=== PATIENT | male | born 1960 | race Caucasian/White ===

== ENCOUNTER 2017-08-08 19:25 | Emergency (ER) | payer OTHER ==
[~2017-08-08] VITALS: Ht 180.3 cm; Wt 8.6 kg
[2017-08-08 19:58] VITALS: BP 97/54; PULSE 119; RESP 20; TEMP 99.7; O2SAT 98
[2017-08-08] MEDS ORDERED: CARB25TA9 PO (20:07)
[2017-08-08] MEDS ORDERED: CHOLESTEROL MED (20:07)
[2017-08-08] MEDS ORDERED: CARB25TA16 PO (20:07)
--- NOTE | 2017-08-08 20:37 | PD ---
HPI Chief Complaint: Back/ Neck Pain or Injury Time Seen by Provider: 20:27 Travel History International Travel<30 days: No Contact w/Intl Traveler<30days: No Traveled to known affect area: No History of Present Illness HPI Patient comes to the emergency department complaining of right low back pain radiating down his right lower extremity describes a burning-like in nature. Patient reports symptoms began 3 days ago. Patient denies any fevers, loss or change in bowel or bladder, numbness or tingling anywhere, weakness, trauma, or history of IV drug use. Patient reports taking baclofen for this with little no relief of symptoms. Patient reports pain got worse shortly prior to arrival. Pain is worse with certain movement and walking. PFSH Past Medical History High Cholesterol: Yes Parkinson's Disease: Yes Past Surgical History Appendectomy: Yes Social History Alcohol Use: No Tobacco Use: Yes (1PPD) Substance Use: No Allergies-Medications (Allergen,Severity, Reaction): Coded Allergies: No Known Allergies (Unverified , 08/08/17) Reported Meds & Prescriptions Reported Meds & Active Scripts Active Corona (Hydrocodone-Acetaminophen) 5 Mg-325 Mg Tab 1 Tab PO Q8HR PRN Medrol Dosepak (Methylprednisolone) 4 Mg Dspk 4 Mg PO DIRECTED Per Pharmacist direction Reported [Cholesterol Med] Carbidopa-Levodopa 25-100 Mg Tab Unknown Dose PO Q8HR Carbidopa-Levodopa ER 25-100 Mg Tab Unknown Dose PO DAILY Review of Systems Except as stated in HPI: all other systems reviewed are Neg Physical Exam Narrative GENERAL: Well-developed, well nourished, appears uncomfortable, and non-ill appearing. SKIN: Focused skin assessment warm and dry. HEAD: Atraumatic. Normocephalic. EYES: Pupils equal and round. EOMI. No scleral icterus. No injection or drainage. ENT: No nasal bleeding or discharge. Mucous membranes pink and moist. NECK: Trachea midline. Supple. No nuclear rigidity. RESPIRATORY: No accessory muscle use. No respiratory distress. MUSCULOSKELETAL: No obvious deformities. No clubbing. No cyanosis. No edema. Full range of motion. No tenderness or crepitus of the midline of the lumbar spine. Patient reports tenderness palpation near right SI joint. Straight leg test negative bilaterally. NEUROLOGICAL: Awake and alert. No obvious cranial nerve deficits. Motor grossly within normal limits. Normal speech. PSYCHIATRIC: Appropriate mood and affect; insight and judgment normal. Data Data Last Documented VS Vital Signs Date Time Temp Pulse Resp B/P (MAP) Pulse Ox O2 Delivery O2 Flow Rate FiO2 08/08/17 19:58 99.7 119 20 97/54 (68) 98 Orders Orders Dexamethasone Inj (Decadron Inj) (08/08/17 20:45) Orphenadrine Inj (Norflex Inj) (08/08/17 20:45) Acetamin-Hydrocod 325-5 Mg (Corona 5-325 (08/08/17 20:45) Ed Discharge Order (08/08/17 20:40) [facility] Medical Decision Making Medical Screen Exam Complete: Yes Emergency Medical Condition: Yes Differential Diagnosis Fracture, strain, sciatica Narrative Course The patient presented complaining of back pain with radiation down leg. There was no history of recent fall or trauma. There was no evidence to support genitourinary etiology. There is also no evidence to suggest vascular pathology such as AAA dissection. No fevers or other evidence to suspect infectious processes, abscess, osteomyelitis etc. The patients neurological exam is normal with normal motor and sensory. There is no saddle paresthesias reported and no bowel or bladder incontinence or retention. I suspect the pain is mechanical in nature with sciatica. Clinical suspicion, plan of care and management was discussed with the patient. The patient was instructed to follow up with their health care provider. The patient was also instructed to return if the pain worsened, changed, or developed weakness or bowel or bladder trouble. The patient agreed with plan. Patient in no obvious distress upon re-evaluation. Patient was asked if they wanted to speak to my attending, which the patient did not wish to do at this time. Any questions/concerns in reference to patient diagnosis/condition discussed and clarified prior to patient's discharge. Reinforced sheer importance of close follow up with patient's primary physician or primary care clinic. Instructed patient to return to ED immediately, if symptoms return/ worsen. Patient showed understanding of above instructions. Further instructions and recommendations were detailed in discharge paperwork. Patient ambulated without difficulty out of ED at discharge. Diagnosis Primary Impression: Sciatica of right side Referrals: Gonzalo Melgar MD Patient Instructions: General Instructions, Sciatica (ED) Additional Instructions: Follow-up with your primary care physician and/or orthopedics in 2-3 days for reevaluation. Take all medication as prescribed. Start taking your baclofen as prescribed tomorrow. Return to the emergency department if symptoms get worse. Med/Other Pt SpecificInfo: Prescription(s) given Scripts Hydrocodone-Acetaminophen (Corona) 5 Mg-325 Mg Tab 1 TAB PO Q8HR Y for PAIN GREATER THAN 7, #9 TAB 0 Refills Prov: Junaid Thompson MD 08/08/17 Methylprednisolone Dosepak (Medrol Dosepak) 4 Mg Dspk 4 MG PO DIRECTED, #1 DSPK 0 Refills Per Pharmacist direction Prov: Junaid Thompson MD 08/08/17 Disposition: 01 DISCHARGE HOME Condition: Stable Jared Garcia Aug 08, 2017 20:37
[2017-08-08] MEDS ORDERED: MEDR4PAK PO (20:38)
[2017-08-08] MEDS ORDERED: NORC5TAB PO ×2 (20:38→20:39)
[2017-08-08] MEDS ORDERED: ORPHENADRINE INJ 60 MG/2 ML AMP IM ONE (20:45)
[2017-08-08] MEDS ORDERED: ACETAMINOPHEN/HYDROcodone 325 MG/5 MG TAB PO ONE (20:45)
[2017-08-08] MEDS ORDERED: DEXAMETHASONE SOD PHOS 20 MG/5 ML VIAL IM ONE (20:45)
== END 2017-08-08 21:14 | disposition home or self-care (01) ==
LOC: PHEFT 19:25
DX: M54.31 Sciatica, right side (principal); E78.00 Pure hypercholesterolemia, unspecified; G20 Parkinson's disease; F17.210 Nicotine dependence, cigarettes, uncomplicated; Z79.899 Other long term (current) drug therapy
CPT/HCPCS: 96372; 99283; J1100; J2360

== ENCOUNTER 2018-01-09 06:35 | Inpatient (IN) ==
[2018-01-09] MEDS ORDERED: Chlorhexidine Gluconate 2% 1 Pack (2 Cloths) TOPICAL SCH (07:00)
[2018-01-09] MEDS ORDERED: Metoprolol Tartrate 25 MG Tablet PO SCH (07:00)
[2018-01-09] MEDS ORDERED: Sodium Chlor 0.9% Inj 500 ML IV.SIG SCH (07:00)
[2018-01-09] MEDS ORDERED: Dexamethasone Inj 20 MG/5 ML Vial IV.PUSH ONE (07:10)
[2018-01-09] MEDS ORDERED: Famotidine PF Inj 20 MG/2 ML Vial IV.PUSH ONE (07:10)
[2018-01-09] MEDS ORDERED: Chlorhexidine 4% Topical 120 APPLIC/120 ML Bottle TOPICAL SCH (07:15)
[2018-01-09] MEDS ORDERED: Celecoxib 200 MG Capsule PO ONE (07:15)
[2018-01-09] MEDS ORDERED: Gabapentin 300 MG Capsule PO ONE (07:15)
[2018-01-09] MEDS ORDERED: Vancomycin Inj 1 GM/200 ML PIGGYBACK IV.SIG SCH ×2 (08:00→20:00)
[2018-01-09] MEDS ORDERED: ceFAZolin 2 GM Premix Inj 2 GM/50 ML PIGGYBACK IV.SIG SCH (08:00)
[2018-01-09] MEDS ORDERED: Sugammadex Inj 200 MG/2 ML Vial IV.PUSH ONE (08:07)
[2018-01-09] MEDS ORDERED: TRANEXAMIC ACID IV.SIG SCH (09:00)
[2018-01-09] MEDS ORDERED: Bupivacaine/Epi PF 0.25% Inj 20 ML, Bupivacaine Liposo PF 1.3% Inj 20 ML, Sodium Chlor ... P-ARTICULR SCH ×2 (09:00)
[2018-01-09] MEDS ORDERED: SODIUM CHLOR 0.9% IV.SIG SCH (09:00)
[2018-01-09] MEDS ORDERED: Lidocaine PF 1% Inj 5 ML Syringe INFILTRATN ONE (12:00)
[2018-01-09] MEDS ORDERED: Glycopyrrolate Inj 1 MG/5 ML Syringe IV.PUSH ONE (12:00)
[2018-01-09] MEDS ORDERED: Neostigmine Inj 5 MG/5 ML Syringe IV.PUSH ONE (12:00)
[2018-01-09] MEDS ORDERED: Bisacodyl 10 MG Supp RECTAL PRN (12:08)
[2018-01-09] MEDS ORDERED: Post-op Orders (for Pharmacy) OTHER STA (12:08)
[2018-01-09] MEDS ORDERED: Morphine Inj 4 MG/ML Vial IV.PUSH PRN (12:08)
[2018-01-09] MEDS ORDERED: Promethazine 25 MG Supp RECTAL PRN (12:08)
--- NOTE | 2018-01-09 12:14 | P.OP ---
- Preoperative Diagnosis (1) Unilateral primary osteoarthritis, right hip Date of procedure: 01/09/18 Procedure: Right total hip arthroplasty by anterior approach Anesthesia: ALESSIA Surgeon: Hal Obregon MD Otc Clerk: JULIÁN Gill PA-C The surgical procedure was assisted by my physician resident assistant. My P.A. presence was necessary throughout this case for the manipulation and positioning of the surgical extremity. My P.A. was assisting me throughout the duration of this procedure. The skill set of a physician resident assistant was medically necessary to complete this procedure. During the surgical case the assistant professor surgical technology was working at the back table and the physician resident assistant was directly assisting me. Operation and Findings: PLAN OF ACTIVITY Weight bear as tolerated. IMPLANTS USED DePuy Corail size 11 standard stem with a size [54] [place] Gription cup, [54/ 36] Altrx poly liner, and a [36+1] ceramic Biolox ceramic head. DETAILS OF PROCEDURE: This patient has a long history of hip pain. Patient was found to have severe osteoarthritis. The patient had radiographic evidence of joint space narrowing with [id number] arthritis and osteophytes around the acetabulum as well as the femoral head. There was also some cystic changes. The patient failed conservative treatment with pain medications, anti-inflammatories, physical therapy, assistive devices including a cane, as well as therapeutic injection of the hip. Patient's hip arthritis was limiting his ability to ambulate and perform activities of daily living. The patient wished to proceed with surgery and informed consent was obtained. Operative site was marked. I discussed both posterior approach and anterior approach with the patient and decision was made for anterior approach. Patient was brought to OR and placed on OR table. IV sedation and general anesthesia was administered by anesthesiologist. Patient positioned on a Kalie table and was given IV antibiotics. Time-out procedure was performed. The hip and thigh were prepped with alcohol followed by Hibiclens. The thigh was draped in the usual sterile fashion. Clean Air Suite was used for this procedure. The procedure began with a 5-inch incision over the anterolateral thigh. Subcutaneous tissue was dissected with Bovie. The fascia over the tensa fasciae latae was incised. Care was taken to avoid injury to the lateral femoral cutaneous nerve. The tensor muscle was retracted laterally. Sartorius was retracted medially. Retractors were now placed. The reflected head of the rectus is now elevated. A capsulotomy was performed over the anterior head capsule. Sutures were placed to help retract the capsule. At this point the femoral head and neck were identified. With soft tissue protected, oscillating saw was used to make a cut through the femoral neck, the femoral head was now removed. At this point attention was turned to preparation of the acetabulum. The labrum was excised. The acetabulum was sequentially reamed up to size [54]. A [place] cup was now placed. Fluoroscopy was used to aid in identification of appropriate version. Cup was fully impacted and found to have excellent fit. Hole eliminator was now placed. The liner was now impacted into the cup. At this point the hip was externally rotated. A hook was placed around the proximal femur. The capsule was released off the lateral and medial femur. The hip was now extended and adducted. Retractors were placed around the proximal femur to allow for exposure. A box osteotome was used to remove the lateral cortex of the femoral neck. A broach was used to help lateralize the prosthesis. Canal finder was used to create a path down the canal. Next, the canal was sequentially broached up to size [11]. This was found to be an excellent fit. Calcar planer was placed. A standard head was placed, and the hip was reduced. The hip was found to have excellent stability with good range of motion. The leg lengths were measured under fluoroscopy and found to be equal compared to preoperatively. Trial broach was removed. The Corail stem was opened. Stem was fully impacted into the proximal femur in appropriate version. The femoral head was placed. The hip was again reduced. Fluoroscopy confirmed excellent alignment of prosthesis. The wound was thoroughly irrigated and capsule was closed with #1 Vicryl. The fascia over the tensor fasciae muscle was closed with #1 Vicryl, subcutaneous tissue was closed with 3-0 Vicryl and the skin was closed with shun and Dermabond skin closure. The capsule layers, muscle, and subcutaneous tissue were injected with a mixture of saline and bupivicaine. Dressings were applied. The patient was transferred to Recovery Room in stable condition.
[2018-01-09] MEDS ORDERED: *Meperidine Inj 25 MG/ML Vial PERIprocedural Use ONLY ONE (12:49)
[2018-01-09] MEDS ORDERED: fentaNYL Citrate Inj 100 MCG/2 ML Ampul ONE ×2 (12:55)
[2018-01-09] MEDS ORDERED: *morphine SULFATE 10 MG/ML PERIprocedure ONLY ONE ×2 (13:12→14:04)
[2018-01-09] MEDS: Ketorolac Inj 30 MG/ML (IVP) Vial IV.PUSH SCH ×2 (13:18→21:45)
[2018-01-09] MEDS: Calcium/Vitamin D 250/125 MG Tablet PO SCH ×2 (13:21→17:21)
[2018-01-09] MEDS ORDERED: Tranexamic Acid Inj 1,000 MG in Sodium Chlor 0.9% Inj 100 ML IV.SIG SCH (14:00)
--- NOTE | 2018-01-09 14:53 | XR ---
EXAM DATE: 01/09/2018 2:12 PM EDT AGE/SEX: 57 years / Male INDICATIONS: Post-op right hip. CLINICAL DATA: This is the patient's initial encounter. Patient reports that signs and symptoms have been present for 1 day and indicates a pain score of 0/10. MEDICAL/SURGICAL HISTORY: None. None. COMPARISON: None. FINDINGS: 4 views of the pelvis and right hip reveal a total hip implant on the right. The intramedullary compo nent abuts the posterior endosteum at its tip. No fracture or dislocation. Air within the subcutaneou s tissues. Mild osteoarthritis involving the left hip. Surgical clips involving the scrotum. CONCLUSION: Right hip prosthesis as detailed above. Electronically signed by: Dilan Marquez MD 01/09/2018 2:52 PM EDT
[2018-01-09] MEDS: ceFAZolin Inj 2,000 MG in Sodium Chlor 0.9% Inj 80 ML IV.SIG SCH (17:21)
[2018-01-09] MEDS ORDERED: Vancomycin Inj 1,000 MG in Sodium Chlor 0.9% Inj 250 ML IV.SIG SCH (20:00)
--- NOTE | 2018-01-09 20:07 | XR ---
EXAM DATE: 01/09/2018 7:58 PM EDT AGE/SEX: 57 years / Male INDICATIONS: Total right hip arthroplasty. CLINICAL DATA: This is the patient's initial encounter. Patient reports that signs and symptoms have been present for 1 day and indicates a pain score of Nonresponsive. MEDICAL/SURGICAL HISTORY: Non-responsive. Non-responsive. COMPARISON: No prior exams available for comparison. FINDINGS: There is a hip prosthesis in place. This appears well placed. Scattered shun are seen. CONCLUSION: Good placement of a right hip prosthesis. Electronically signed by: Jeovanny Marie MD 01/09/2018 8:05 PM EDT
[2018-01-09] MEDS ORDERED: Celecoxib 200 MG Capsule PO SCH (21:00)
[2018-01-09] MEDS: Senna/Docusate Sodium 8.6/50 MG Tablet PO SCH (21:44)
[2018-01-09] MEDS: Vancomycin Inj 1,000 MG in Sodium Chlor 0.9% Inj 250 ML IV.SIG SCH (22:27)
[2018-01-10] MEDS: ceFAZolin Inj 2,000 MG in Sodium Chlor 0.9% Inj 80 ML IV.SIG SCH ×2 (02:27→12:18)
--- NOTE | 2018-01-10 06:53 | P.PNOP ---
Subjective Interval history: Doing well status post right total hip arthroplasty. Does have some bloody drainage through dressing Physical Exam Vital signs: Vital Signs 01/09/18 07:23 01/09/18 12:45 01/09/18 13:00 Temperature 97.6 F 97.4 F L Pulse Rate 77 100 H 90 Respiratory Rate 20 16 16 Blood Pressure 116/78 119/66 110/56 L Pulse Oximetry 96 92 L 96 01/09/18 13:15 01/09/18 13:30 01/09/18 13:45 Temperature Pulse Rate 104 H 84 88 Respiratory Rate 16 16 16 Blood Pressure 98/56 L 105/59 L 109/62 Pulse Oximetry 96 96 97 01/09/18 14:00 01/09/18 14:37 01/09/18 15:01 Temperature 97.2 F L Pulse Rate 98 H 87 Respiratory Rate 16 18 18 Blood Pressure 110/59 L 130/76 Pulse Oximetry 96 96 01/09/18 18:21 01/09/18 20:00 01/09/18 20:36 Temperature 98.3 F 96.9 F L Pulse Rate 103 H 86 Respiratory Rate 18 18 18 Blood Pressure 114/58 L 105/58 L Pulse Oximetry 95 93 L 01/09/18 22:28 01/10/18 03:36 01/10/18 03:49 Temperature 98.1 F Pulse Rate 111 H Respiratory Rate 18 18 18 Blood Pressure 121/62 Pulse Oximetry 96 Intake & Output 01/09/18 01/09/18 01/10/18 06:59 18:59 06:59 Intake Total 1000 / 1000 1600 / 1600 Output Total 350 / 350 Balance 650 / 650 1600 / 1600 Weight 86.2 kg 86.2 kg Intake: IV 1200 / 1200 LR 1000 mL Inj 1,000 ML @ 80 1000 / 1000 mls/hr IV.CONT .[id number] CORINNE Rx# :[id number] Ofirmev Inj 1,000 mg In 100 ml 100 / 100 @ 400 mls/hr IV.SIG Q12H [facility] Rx #:[id number] Ancef Inj 2,000 MG In NS Inj 80 100 / 100 ML @ 200 mls/hr IV.SIG Q8H [facility]INNE Rx#:[id number] Oral 400 / 400 Anesthesia Amount 1000 / 1000 Output: Estimated Blood Loss 350 / 350 Other: # Voids 0 Date of Last Bowel Movement 01/08/18 01/08/18 Weight On Admission 86.2 kg Narrative: Right lower extremity: Dressing removed revealing surgical tape to needing to remain in place. He has 1 pinpoint spot of drainage the center of the incision. He has mild swelling no erythema. He has full range of motion of knee and ankle. Distally he has intact sensation good capillary refills. Results - Labs Laboratory Results - last 24 hr 01/09/18 07:10 Blood Type A Positive Blood Type Recheck Required Antibody Screen Negative - Imaging Impressions Hip X-Ray 01/09/18 00:00 CONCLUSION: Good placement of a right hip prosthesis. Hip X-Ray 01/09/18 12:09 CONCLUSION: Right hip prosthesis as detailed above. Assessment and Plan - Assessment and Plan Right total hip arthroplasty POD 1 Physical therapy weightbearing as tolerated twice daily. Patient has 3 stairs to get into home. Physical therapy needs to work with stair climbing. Dressing change today. We will begin daily or every other day dressing changes with Primapore only. Ensuring that surgical tape remains in place and does not get pulled off with dressing. Case management for home health care with 's choice Plan on discharge today to home Follow up with Dr. Patel or PA in 2 weeks
[2018-01-10] MEDS: Calcium/Vitamin D 250/125 MG Tablet PO SCH ×2 (08:27→12:20)
[2018-01-10] MEDS ORDERED: Celecoxib 200 MG Capsule PO SCH (09:00)
--- NOTE | 2018-01-10 09:36 | P.DCO ---
- Physical Therapy Physical Therapy: Gait training, Safety evaluation Hip: Total hip, Protocol: Right, Posterior hip precautions Right Lower Extremity Weight Bearing: Weight bearing as tolerated - Nursing Dressing changes: Daily dressing change, Coverderm/Primapore (Ensure that surgical tape over incision remains in place) - Certification Need for Home Health services: I have seen patient Cooper Kasper on 01/10/18. My clinical findings support the need for the requested home health care services because: Need for Home Health Services: Limited mobility due to disease progression Homebound Certification: I certify that my clinical findings support that this patient is homebound because: Homebound Certification: Post-op weakness
[2018-01-10 09:46] LABS: Hematocrit 38.7 % (39.0-51.0); Hemoglobin 12.9 gm/dL (13.0-17.0)
[2018-01-10] MEDS: Senna/Docusate Sodium 8.6/50 MG Tablet PO SCH ×2 (12:18→20:09)
[2018-01-10] MEDS: Vancomycin Inj 1,000 MG in Sodium Chlor 0.9% Inj 250 ML IV.SIG SCH (12:33)
--- NOTE | 2018-01-11 06:51 | P.PNOP ---
Subjective Interval history: POD 2 s/p Right Anterior ERLIN Doing well. Pain controlled. Patient reports that therapy went very well yesterday and he was able to work on ambulating stairs. States that he feels comfortable enough to go home today. Physical Exam Vital signs: Vital Signs 01/10/18 08:00 01/10/18 12:00 01/10/18 16:00 Temperature 98.0 F 98.3 F 98.2 F Pulse Rate 88 84 66 Respiratory Rate 18 18 18 Blood Pressure 132/65 141/76 H 120/72 Pulse Oximetry 95 95 95 01/10/18 20:00 01/11/18 00:00 01/11/18 00:54 Temperature 97.9 F 98.1 F Pulse Rate 72 74 Respiratory Rate 20 15 15 Blood Pressure 125/80 107/56 L Pulse Oximetry 95 94 L Intake & Output 01/10/18 01/10/18 01/11/18 06:59 18:59 06:59 Intake Total 2410 / 2410 100 / 100 800 / 800 Output Total 450 / 450 500 / 500 Balance 1960 / 1959 -400 / -400 800 / 800 Weight 86.2 kg Intake: IV 1650 / 1650 100 / 100 LR 1000 mL Inj 1,000 ML @ 80 1000 / 1000 mls/hr IV.CONT .[id number] CORINNE Rx# :[id number] Ofirmev Inj 1,000 mg In 100 ml 200 / 200 100 / 100 @ 400 mls/hr IV.SIG Q12H [facility]IN[facility] Rx #:[id number] Vancomycin Inj 1,000 MG In NS 250 / 250 Inj 250 ML @ 200 mls/hr IV.SIG Q12H [facility]IN[facility] Rx#:[id number] Ancef Inj 2,000 MG In NS Inj 80 200 / 200 ML @ 200 mls/hr IV.SIG Q8H CORINNE Rx#:[id number] Oral 760 / 760 800 / 800 Output: Urine 450 / 450 500 / 500 Other: # Voids 2 2 2 Date of Last Bowel Movement 01/08/18 01/08/18 01/08/18 # Bowel Movements 0 Narrative: Right lower extremity: Dressing is clean and dry for the most part. He has an area of bloody drainage in the proximal third of the bandage approximately the size of a quarter. Otherwise, he is neurovascularly intact distally Results - Labs CBC & Chem 7: 01/10/18 07:17 Laboratory Results - last 24 hr 01/10/18 07:17 Hgb 12.9 L Hct 38.7 L Assessment and Plan - Problem List (1) Status post right hip replacement Code(s): Z96.641 - Presence of right artificial hip joint Status: Acute - Assessment and Plan 1) Right total hip arthroplasty POD 2 Physical therapy weightbearing as tolerated twice daily. Patient has 3 stairs to get into home. Physical therapy needs to work with stair climbing. Dressing change today. We will begin daily or every other day dressing changes with Primapore only. Ensuring that surgical tape remains in place and does not get pulled off with dressing. Case management for home health care with 's choice Plan for discharge home today Follow up with Dr. Patel or PA in 2 weeks [employer] Prescription Drug Monitoring Database has been queried and verified prior to prescribing the controlled substance. Acute pain exception. This patient has normal, predicted, physiological, and time limited response to an adverse mechanical stimulus associated with surgery, trauma, or acute illness as described in my notes. There is a lack of alternative treatment options other than to include the prescribed narcotic treatment for this condition.
--- NOTE | 2018-01-11 06:56 | P.DS ---
Date of admission: 01/09/18 06:35 Primary care physician: Physician [facility] Attending physician on discharge: Hal Obregon Anticipated date of discharge: 01/11/18 Brief History from admission: Patient has had history of progressing right hip pain for some time now. He was originally evaluated on outpatient basis in our office. After multiple attempts and failing conservative treatment which included anti-inflammatory therapy, intra-articular steroid injections, and activity modification, the decision was made to move forward with elective right total hip arthroplasty. DS: Diagnosis - Discharge Diagnosis (1) Status post right hip replacement Status: Acute DS: Summary Hospital Course: Patient admitted from an outpatient basis for an elective right total hip arthroplasty. He tolerated the procedure well. He was admitted to [facility]. On postop day 1 he was noted that he had significant bloody drainage from his incision site. Therefore, the silver dressing was removed and daily dressing changes were initiated with her dressing. He was unable to go home on postop day 1 due to him having stairs at his own house. Therefore, he worked aggressively with therapy on postop day 1 on ambulating and working on stair training. By postop day 2, his drainage was minimal, he was hemodynamically stable, his pain was controlled, and he was ambulating well with therapy and able to traverse stairs. He was fit for discharge home with home health care. He will remain fully weightbearing. He will have daily dressing changes with a [place] dressing. He will follow-up in [address] Obregon or his PA. - Time Spent with Patient Total time spent providing and/or coordinating discharge services: - Quality: VTE Deep Vein Thrombosis/Pulmonary Embolism Present on Admission: No Exam Vital signs: Vital Signs 01/10/18 08:00 01/10/18 12:00 01/10/18 16:00 Temperature 98.0 F 98.3 F 98.2 F Pulse Rate 88 84 66 Respiratory Rate 18 18 18 Blood Pressure 132/65 141/76 H 120/72 Pulse Oximetry 95 95 95 01/10/18 20:00 01/11/18 00:00 01/11/18 00:54 Temperature 97.9 F 98.1 F Pulse Rate 72 74 Respiratory Rate 20 15 15 Blood Pressure 125/80 107/56 L Pulse Oximetry 95 94 L Intake & Output 01/10/18 01/10/18 01/11/18 06:59 18:59 06:59 Intake Total 2410 / 2410 100 / 100 800 / 800 Output Total 450 / 450 500 / 500 Balance 1960 / 1960 -400 / -400 800 / 800 Weight 86.2 kg Intake: IV 1650 / 1650 100 / 100 LR 1000 mL Inj 1,000 ML @ 80 1000 / 1000 mls/hr IV.CONT .[id number] CORINNE Rx# :[id number] Ofirmev Inj 1,000 mg In 100 ml 200 / 200 100 / 100 @ 400 mls/hr IV.SIG Q12H CORINNE Rx #:[id number] Vancomycin Inj 1,000 MG In NS 250 / 250 Inj 250 ML @ 200 mls/hr IV.SIG Q12H CORINNE Rx#:[id number] Ancef Inj 2,000 MG In NS Inj 80 200 / 200 ML @ 200 mls/hr IV.SIG Q8H CORINNE Rx#:[id number] Oral 760 / 760 800 / 800 Output: Urine 450 / 450 500 / 500 Other: # Voids 2 2 2 Date of Last Bowel Movement 01/08/18 01/08/18 01/08/18 # Bowel Movements 0 Narrative: RLE: Dressing has area of bloody drainage in the proximal dressing approximately the size of quarter. Otherwise, no pain with movement and full sensation distally Results Procedures completed during hospitalization: Right anterior total hip arthroplasty Labs on day of discharge: Labs from last 24 hours 01/10/18 07:17 Hgb 12.9 L Hct 38.7 L - Impressions ITS Impressions Hip X-Ray 01/09/18 12:09 CONCLUSION: Right hip prosthesis as detailed above. Discharge Plan - Discharge Disposition Patient Disposition: /Home Health Service - Discharge Condition Condition: Good - Discharge Order Discharge Orders: Discharge Order (Routine); Ordered 01/10/18 Ordered By: Huy Mercado - Discharge Details Anticipated Discharge Date: 01/10/18 - Physicians Team Primary Care Provider: [facility] Attending Provider: Hal Obregon Other Providers: [facility],Agency - Rxs /Orders / Referrals /Forms Prescriptions: Continue carbidopa-levodopa 25-100 mg Tablet,Disintegrating 1 tab PO Q4HR carbidopa-levodopa 25-100 mg Tablet Extended Release 1 tab PO HS Discontinued hydrocodone-acetaminophen [[place]] 5-325 mg Tablet 1 tab PO Q4-6H PRN (Reason: Pain) Ambulatory Orders / Order Sets / DME: Walker With Front Wheels (1 each) (Routine) Location: Determined by Patient Ordered By: Huy Mercado Referrals: [facility] [Primary Care Provider] - See Instructions Hal Obregon MD [Physician] - See Instructions (2 weeks ) - Discharge Instructions Additional Instructions: Make or keep your follow up appointments as directed by your provider. Take medications as directed. - Post Discharge Care Plan Care Plan Goals: Discharge Care Plan Goals for Total Hip Replacement You had a hip replacement surgery. This means your natural hip was replaced with an artificial joint (prosthesis). You may be recovering at home or in a rehabilitation facility. Either way, you must take care of your new hip. Here are some goals to help you heal well. Directions to Meet your Goals: 1. Activity & Exercises: * Take pain medicine as directed by your doctor. * Dont drive until your doctor says its OK. And never drive while taking opioid pain medicine. * Wear the support stockings you were given in the hospital as directed by your surgeon. * Dont sit for more than 30 to 45 minutes at one time. * Dont lean forward while sitting. * Dont cross your legs. * Keep your feet flat on the floor. Dont turn your foot or leg inward. This stresses your hip joint. * Use an elevated toilet seat for 6 weeks after surgery. * Nap if you are tired, but dont stay in bed all day. * Sit on a firm cushion when you ride in a car and avoid sitting too low. Try not to bend your hip too much when getting in and out of the car. 2. Prevent Falls/Injury: * Follow your doctors orders regarding how much weight to put on the affected leg. * Dont bend at the hip when you bend over. Don't bend at the waist to put on socks and shoes. And avoid picking up items from the floor. * Use a cane, crutches, a walker, or handrails until your balance, flexibility, and strength improve. And remember to ask for help from others when you need it. * Free up your hands so that you can use them to keep balance. Use a lore pack , apron, or pockets to carry things. * Arrange your household to keep the items you need handy. Keep everything else out of the way. * Remove items that may cause you to fall, such as throw rugs and electrical cords. * Use nonslip bath mats, grab bars, an elevated toilet seat, and a shower chair in your bathroom * Sit on a shower stool or chair when you shower to keep from falling. 3. Precautions: * Prevent infection. Any infection will need to be treated immediately. Call your doctor right away if you think you might have an infection. * Tell your dentist that you have an artificial joint and take antibiotics as prescribed before any dental work. * Tell all your healthcare providers about your artificial joint before any medical procedure. * Maintain a healthy weight. Get help to lose any extra pounds. Added body weight puts stress on the joints. 4. Incision Care: * Prevent infection by washing your hands often. If an infection occurs, it will need to be treated right away. * Call your doctor right away if you think you may have an infection. Symptoms include a fever or an incision that leaks white, green, or yellow fluid. * Don't soak your incision in water until your doctor says its OK. This means no hot tubs, bathtubs, or swimming pools. * Follow your doctor's instructions for changing the dressing. * Dont rub the incision, or apply creams or lotions to it. * If you notice any redness or drainage around the bandage site, contact your surgeon's office immediately. 5. Follow-Up: Do Not miss your follow-up appointment. Keep up with all your appointments and yearly check ups When to call your doctor: Call your doctor right away if you have: Hip pain gets worse Pain or swelling in your calf or leg not related to your incision Tenderness or redness in your calf Fever of 100.4F (38C) or higher, or as directed by your healthcare provider Shaking chills Swelling or redness at the incision site gets worse Fluid draining from the incision Call 911: Call 911 right away if you have: Chest pain Shortness of breath Any pain or tenderness in your calf
[2018-01-11] MEDS: Calcium/Vitamin D 250/125 MG Tablet PO SCH ×2 (08:26→10:28)
[2018-01-11] MEDS: Senna/Docusate Sodium 8.6/50 MG Tablet PO SCH (08:26)
== END 2018-01-11 11:00 | disposition home health service (06) ==
LOC: HSDI 06:35 → N06 14:28
PROVIDERS: ADMIT Orthopaedic Surgery Orthopaedic Trauma; ATTEND Orthopaedic Surgery Orthopaedic Trauma
DX: M16.11 Unilateral primary osteoarthritis, right hip; Z79.899 Other long term (current) drug therapy; Z87.891 Personal history of nicotine dependence; G20 Parkinson's disease; Z79.891 Long term (current) use of opiate analgesic